=== PATIENT | female | born 1955 | race Caucasian/White ===

== ENCOUNTER 2023-11-10 17:11 | Emergency (ER) | payer MEDICARE, OTHER ==
[2023-11-10] MEDS: Take Home: predniSONE 20 MG, 2 Tab Pack PO ONE (18:13)
[2023-11-10] MEDS: Take Home: Ondansetron 4 MG Tab.DIS, 5 Tab Pack PO ONE ×2 (18:14)
[2023-11-10] MEDS: Take Home: Acetaminophen/HYDROcodone 325-5 MG, 5 Tab Pack PO ONE (18:14)
[2023-11-10] MEDS: Take Home: Ondansetron 4 MG Tab.DIS, 5 Tab Pack ONE (18:51)
[2023-11-10 20:07] VITALS: BP 136/60; PULSE 62
== END 2023-11-10 18:38 | disposition home or self-care (01) ==
LOC: VM.ED 17:11
DX: J98.8 Other specified respiratory disorders (principal); M54.41 Lumbago with sciatica, right side; Z91.040 Latex allergy status; Z88.0 Allergy status to penicillin; Z88.5 Allergy status to narcotic agent; Z88.8 Allergy status to other drugs, medicaments and biological substances; Z79.899 Other long term (current) drug therapy; Z79.51 Long term (current) use of inhaled steroids; Z87.891 Personal history of nicotine dependence
CPT/HCPCS: 99283; A9270-GY; J7512; Q0162

== ENCOUNTER 2023-11-13 09:49 | Emergency (ER) | payer MEDICARE, OTHER ==
[2023-11-13 10:14] VITALS: BP 149/71; PULSE 71
== END 2023-11-13 10:33 | disposition home or self-care (01) ==
LOC: VM.ED 09:49
DX: J20.9 Acute bronchitis, unspecified (principal); Z87.891 Personal history of nicotine dependence; Z79.899 Other long term (current) drug therapy; Z88.5 Allergy status to narcotic agent; Z88.8 Allergy status to other drugs, medicaments and biological substances; Z88.1 Allergy status to other antibiotic agents; Z91.040 Latex allergy status
CPT/HCPCS: 99283; 99284